=== PATIENT | female | born 2000 | race American Indian/Alaskan Native ===

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

== ENCOUNTER 2019-05-24 18:59 | Emergency (ER) | payer OTHER ==
[~2019-05-24] VITALS: Ht 175.3 cm; Wt 68.0 kg
[~2019-05-24 18:59] MED LIST changes: +CALCIUM500 MG PO; +NAPROXEN375 MG PO; +VITAMIN D2000 UNIT PO
--- OUTSIDE RECORDS SUMMARY | 2019-05-24 19:02 | XMS ---
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 Care History Medical/Surgical 06/02/2018 [facility] \T\middot;\T\nbsp; PATIENT IS A [employer] MEMBER. \T\middot;\T\nbsp; PLEASE REFER PATIENT TO [facility] FOR NON EMERGENT MEDICAL NEEDS. \T\middot;\ T\nbsp; [facility] CAN SEE PATIENTS SAME DAY FOR APTS IF PATIENT CALLS FIRST THING IN THE MORNING. E.D. VISIT COUNT (12 MO.) 3 [facility] TOTAL 3 NOTE: Visits indicate total known visits. ED/UCC VISIT TRACKING (12 MO.) 05/24/2019 19:00 [facility] [place] TYPE: Emergency COMPLAINT: - CHEST PAIN/HEADACHE/LOWER BACK PAIN 06/01/2018 14:09 [facility] [place] TYPE: Emergency COMPLAINT: - CHEST PAIN, EXTREMITY NUMBNESS 05/28/2018 09:25 [facility] [place] TYPE: Emergency COMPLAINT: - NUMBNESS/FEVER DIAGNOSES: - Pleurodynia - Allergy status to penicillin - Chest pain, unspecified - Weakness INPATIENT VISIT TRACKING (12 MO.) 06/01/2018 14:10 [facility] [place] TYPE: Medical Surgical COMPLAINT: - WEAKNESS/POSSIBLE MYOPATHY DIAGNOSES: - Muscle weakness (generalized) - Allergy status to penicillin - Vitamin D deficiency, unspecified - Pleurisy - Chest pain on breathing [email or web address]
[2019-05-24] MEDS ORDERED: MACROBID 100 M100 MG PO (21:55)
--- NOTE | 2019-05-24 22:57 | EKG ---
[facility] [address] [facility] [place] [address] Signed Normal sinus rhythm Normal ECG When compared with ECG of 01-JUN-2018 14:24, Nonspecific T wave abnormality now evident in Inferior leads Confirmed by ROOSEVELT RODRÍGUEZ MD ([id number]) on 05/24/2019 10:57:14 PM Electronically Signed By: ROOSEEVLT RODRÍGUEZ MD 05/24/19 2257 PATIENT NAME: BRADLEYYULI Electrocardiogram DATE OF : [birth year] PHYSICIAN: ROOSEVELT RODRÍGUEZ MD REPORT #: [id number] REPORT IS CONFIDENTIAL AND NOT TO BE RELEASED WITHOUT AUTHORIZATION
== END 2019-05-24 22:11 | disposition home or self-care (01) ==
LOC: ED 18:59
DX: R07.89 Other chest pain (principal); N39.0 Urinary tract infection, site not specified; Z88.0 Allergy status to penicillin; Z91.018 Allergy to other foods; Z79.899 Other long term (current) drug therapy
CPT/HCPCS: 71046; 80053; 81001; 83735; 84484; 84703; 85025; 85379; 93005; 93010; 96361; 96374; 96375; 99285-25; J1200; J1885; J2765; J7030

== ENCOUNTER 2020-06-16 12:41 | Emergency (ER) | payer OTHER ==
[~2020-06-16 12:41] MED LIST changes: +MACROBID 100 M100 MG PO
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
== END 2020-06-16 14:55 | disposition home or self-care (01) ==
LOC: ED 12:41
DX: S06.9X9A Unspecified intracranial injury with loss of consciousness of unspecified duration, initial encounter (principal); S63.501A Unspecified sprain of right wrist, initial encounter; Z88.0 Allergy status to penicillin; Z91.018 Allergy to other foods; V47.6XXA Car passenger injured in collision with fixed or stationary object in traffic accident, initial encounter
CPT/HCPCS: 70450; 71260; 72125; 73110; 74177; 80053; 82150; 82550; 83690; 84703; 85025; 99284-25; Q9967

== ENCOUNTER 2021-02-26 07:22 | Emergency (ER) | payer OTHER ==
[~2021-02-26] VITALS: Ht 175.3 cm; Wt 73.2 kg
[2021-02-26] MEDS ORDERED: CIPROFLOXACIN500 MG PO (07:50)
[2021-02-26] MEDS ORDERED: DICYCLOMINE HCL10 MG PO (10:04)
[2021-02-26] MEDS ORDERED: ZOFRAN4 MG PO (10:04)
== END 2021-02-26 10:35 | disposition home or self-care (01) ==
LOC: ED 07:22
DX: R11.2 Nausea with vomiting, unspecified (principal); R19.7 Diarrhea, unspecified; R10.31 Right lower quadrant pain; Z88.0 Allergy status to penicillin; Z88.1 Allergy status to other antibiotic agents; Z91.018 Allergy to other foods; Z79.899 Other long term (current) drug therapy
CPT/HCPCS: 74177; 80053; 81001; 83690; 84703; 85025; 99284-25; J1885; J7030; Q9967

== ENCOUNTER 2021-03-31 09:11 | Emergency (ER) | payer OTHER ==
[~2021-03-31] VITALS: Ht 175.3 cm; Wt 73.1 kg
[~2021-03-31 09:11] MED LIST changes: +CIPROFLOXACIN500 MG PO; +DICYCLOMINE HCL10 MG PO; +ZOFRAN4 MG PO
== END 2021-03-31 10:33 | disposition home or self-care (01) ==
LOC: ED 09:11
DX: J20.9 Acute bronchitis, unspecified (principal); R04.2 Hemoptysis; Z88.0 Allergy status to penicillin; Z88.1 Allergy status to other antibiotic agents; Z88.8 Allergy status to other drugs, medicaments and biological substances
CPT/HCPCS: 71046; 99283-25

== ENCOUNTER 2021-06-13 09:53 | Emergency (ER) | payer OTHER ==
[~2021-06-13] VITALS: Ht 175.3 cm; Wt 71.7 kg
[~2021-06-13 09:53] MED LIST changes: +ACETAMINOPHEN500 MG PO; +KRISTALOSE10 GM PO; +ONDANSETRON ODT4 MG PO; +PEG3350510 GM PO; +PROMETHAZINE HC25 MG PR; +TRAMADOL HCL50 MG PO
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
[2021-06-13] MEDS ORDERED: NITROFURANTOIN100 M1 PO (10:14)
[2021-06-13] MEDS ORDERED: PROMETHEGAN25 MG PR (10:14)
[2021-06-13] MEDS ORDERED: LACTULOSE10 GM/151 PO (10:15)
[2021-06-13] MEDS ORDERED: CIPRO500 MG PO (14:04)
== END 2021-06-13 14:15 | disposition home or self-care (01) ==
LOC: ED 09:53
DX: N39.0 Urinary tract infection, site not specified (principal); K59.00 Constipation, unspecified; Z88.0 Allergy status to penicillin; Z88.1 Allergy status to other antibiotic agents; Z88.8 Allergy status to other drugs, medicaments and biological substances; Z91.018 Allergy to other foods; Z79.899 Other long term (current) drug therapy
CPT/HCPCS: 36415; 74177; 80053; 81001; 84703; 85025; 99284-25; Q9967

== ENCOUNTER 2021-09-03 12:40 | Emergency (ER) | payer OTHER ==
[~2021-09-03] VITALS: Ht 175.3 cm; Wt 70.3 kg
[~2021-09-03 12:40] MED LIST changes: +CIPRO500 MG PO; +LACTULOSE10 GM/151 PO; +NITROFURANTOIN100 M1 PO; +PROMETHEGAN25 MG PR
--- OUTSIDE RECORDS SUMMARY | 2021-09-03 12:42 | XMS ---
PreManage Notification: YULI HUERTA Security Stone Repairer Events No recent Security Events currently on file CRITERIA MET - [facility] - Has Care Guidelines CARE PROVIDERS MANDO HERNANDEZ Physician Dehydrogenation Supervisor: Surgical 06/02/2018-[facility] PHONE: Unknown [facility] [facility] PHONE: [phone] [facility] PHONE: [phone] Whitney has no Care Guidelines for this patient. Care History Medical/Surgical 06/16/2021 [facility] PATIENT- [facility]IG[facility] PLEASE REFER PATIENT TO [facility] FOR NON EMERGENT MEDICAL NEEDS. [facility] FOR APTS IF PATIENT CALLS FIRST THING IN THE MORNING. Marielos VISIT COUNT (12 MO.) 1 [facility] 5 [facility] TOTAL 6 NOTE: Visits indicate total known visits. ED/UCC VISIT TRACKING (12 MO.) 09/03/2021 12:41 [facility] [place] TYPE: Emergency COMPLAINT: - ABD PAIN, TROUBLE URINATING, N/V, CLAMMY 06/13/2021 09:54 [facility] [place] TYPE: Emergency COMPLAINT: - POST SURGERY, NO BOWEL MOVEMENTS X10 DAYS DIAGNOSES: - Allergy status to other antibiotic agents - Constipation, unspecified - Allergy status to penicillin - Unspecified abdominal pain - Allergy to other foods - Urinary tract infection, site not specified - Allergy status to other drugs, medicaments and biological substances - Other buttermilk drier operator (current) drug therapy 06/09/2021 22:44 [facility] [place] TYPE: Emergency COMPLAINT: - VOMITING, POST OP PAIN DIAGNOSES: - Urinary tract infection, site not specified - Allergy status to penicillin - Allergy to other foods - Other buttermilk drier operator (current) drug therapy - Allergy status to other antibiotic agents - Vomiting, unspecified - Allergy status to other drugs, medicaments and biological substances 04/21/2021 09:29 [facility] [place] TYPE: Emergency DIAGNOSES: - Epigastric pain [...] - Nausea with vomiting, unspecified - Other long-term (current) drug therapy INPATIENT VISIT TRACKING (12 MO.) No inpatient visits to display in this time frame [email or web address]
[2021-09-03] MEDS ORDERED: PROMETHAZINE HC25 M1 PO (15:23)
[2021-09-03] MEDS ORDERED: ONDANSETRON ODT8 MG PO (15:23)
== END 2021-09-03 15:36 | disposition home or self-care (01) ==
LOC: ED 12:40
DX: K29.00 Acute gastritis without bleeding (principal); Z88.8 Allergy status to other drugs, medicaments and biological substances; Z88.0 Allergy status to penicillin; Z88.1 Allergy status to other antibiotic agents
CPT/HCPCS: 36415; 80053; 81001; 83690; 84703; 85025; 96374; 96375; 99283-25; C9113; J1200; J2405; J2765; J7030